=== PATIENT | female | born 1975 | race Hispanic/Latino ===

== ENCOUNTER 2017-03-20 09:42 | Emergency (ER) | payer OTHER ==
[~2017-03-20] VITALS: Ht 162.6 cm; Wt 82.0 kg
[2017-03-20] MEDS ORDERED: NS 1,000 ML IV SCH (09:50)
[2017-03-20] MEDS ORDERED: VENTAER IN (09:56)
[2017-03-20] MEDS ORDERED: TYLE325T5 PO (09:56)
[2017-03-20 10:17] LABS: BASO % 0.5 % (0.0-1.0); EOS # 0.2 10^3/uL (0.0-0.50); EOS % 3.5 % (0.0-3.0); IMMATURE GRANULOCYTE % 0.2 % (0-0); LYMPH # 1.7 10^3/uL (1.5-4.5); LYMPH % 29.2 % (24.0-44.0); MEAN CORPUSCULAR HEMOGLOBIN 26.3 pg (27.0-33.0); MEAN CORPUSCULAR HGB CONC 32.2 g/dl (32.0-36.5); MEAN CORPUSCULAR VOLUME 81.8 fl (80.0-96.0); MONO # 0.5 10^3/uL (0.0-0.8); MONO % 8.1 % (0.0-5.0); NEUTROPHILS # 3.4 10^3/uL (1.8-7.7); NEUTROPHILS % 58.5 % (36.0-66.0); PLATELET COUNT, AUTOMATED 238 10^3/uL (150-450); RED CELL DISTRIBUTION WIDTH 12.9 % (11.5-14.5); WHITE BLOOD COUNT 5.8 10^3/uL (4.0-10.0)
[2017-03-20 10:40] LABS: CONTROL LINE HCG INT CTR LINE PRESENT
[2017-03-20] MEDS ORDERED: DICYCLOMINE INJ 20MG/2ML (J0500) IM ONE (10:45)
[2017-03-20 10:50] LABS: ALBUMIN 3.5 GM/DL (3.2-5.2); ALBUMIN/GLOBULIN RATIO 0.83 (1.00-1.93); ALKALINE PHOSPHATASE 136 U/L (45-117); ALT/SGPT 60 U/L (12-78); ANION GAP 9 MEQ/L (8-16); AST/SGOT 35 U/L (15-37); BILIRUBIN,DIRECT < 0.1 MG/DL (0.0-0.2); BILIRUBIN,TOTAL 0.4 MG/DL (0.2-1.0); BLOOD UREA NITROGEN 13 MG/DL (7-18); CALCIUM LEVEL 9.1 MG/DL (8.5-10.1); CARBON DIOXIDE LEVEL 26 MEQ/L (21-32); CHLORIDE LEVEL 105 MEQ/L (98-107); CREATININE FOR GFR 0.69 MG/DL (0.55-1.02); GLOMERULAR FILTRATION RATE > 60.0 (>58); GLUCOSE, FASTING 90 MG/DL (70-105); POTASSIUM SERUM 4.3 MEQ/L (3.5-5.1); SODIUM LEVEL 140 MEQ/L (136-145); TOTAL PROTEIN 7.7 GM/DL (6.4-8.2)
[2017-03-20 12:16] VITALS: BP 129/92
--- NOTE | 2017-03-23 06:00 | ECGEPIP ---
Stationary ECG Study [facility] - ED Test Date: 2017-03-20 Pat Name: FARIDA VALENZUELA Department: Room: - Gender: F Micro Lab Analyst: nereida : 1975 Requested By: Katy Sol Order Number: [id number] Reading MD: Kirill Xiao Measurements Intervals [place] Rate: 59 P: 35 [place]: 145 QRS: -5 QRSD: 94 T: 8 QT: 401 QTc: 398 Interpretive Statements SINUS BRADYCARDIA POSSIBLE LEFT ATRIAL ENLARGEMENT POSSIBLE LEFT VENTRICULAR HYPERTROPHY NSTTW ABNORMALITIES NO PRIORS Electronically Signed On 03-23-2017 5:59:59 EDT by Kirill Xiao
== END 2017-03-20 12:26 | disposition home or self-care (01) ==
LOC: M ED 09:42
DX: K58.0 Irritable bowel syndrome with diarrhea (principal); Z98.890 Other specified postprocedural states
CPT/HCPCS: 80048; 80076; 83690; 84703; 85025; 93000; 96372; 99284; J0500

== ENCOUNTER → 2017-05-12 | Outpatient (REF) | payer OTHER, MEDICAID ==
[~2017-05-12] MED LIST: TYLE325T5 PO; VENTAER IN
[2017-05-12 19:36] LABS: BASO % 0.6 % (0.0-1.0); EOS # 0.2 10^3/uL (0.0-0.50); EOS % 3.2 % (0.0-3.0); IMMATURE GRANULOCYTE % 0.3 % (0-0); LYMPH # 1.7 10^3/uL (1.5-4.5); LYMPH % 24.7 % (24.0-44.0); MEAN CORPUSCULAR HEMOGLOBIN 26.4 pg (27.0-33.0); MEAN CORPUSCULAR HGB CONC 32.4 g/dl (32.0-36.5); MEAN CORPUSCULAR VOLUME 81.3 fl (80.0-96.0); MONO # 0.6 10^3/uL (0.0-0.8); NEUTROPHILS # 4.4 10^3/uL (1.8-7.7); NEUTROPHILS % 63.2 % (36.0-66.0); PLATELET COUNT, AUTOMATED 246 10^3/uL (150-450); RED CELL DISTRIBUTION WIDTH 12.7 % (11.5-14.5); WHITE BLOOD COUNT 6.9 10^3/uL (4.0-10.0)
== END ==
LOC: M LAB REF 17:37
PROVIDERS: ATTEND Family Medicine Addiction Medicine
DX: R59.0 Localized enlarged lymph nodes (principal)

== ENCOUNTER 2017-06-12 08:03 | Day surgery (SDC) | payer OTHER ==
[2017-06-12] MEDS: NS 1,000 ML IV (09:30)
[2017-06-12] MEDS ORDERED: LIDOCAINE 2% INJ 100 MG/5 ML SDV (FOR ANES.) As Ordered (12:00)
[2017-06-12] MEDS ORDERED: PROPOFOL 200 MG/20 ML VIAL As Ordered (12:00)
== END 2017-06-12 11:21 | disposition home or self-care (01) ==
LOC: M OPP 08:03
DX: R19.4 Change in bowel habit (principal); Z86.010 Personal history of colon polyps; K64.8 Other hemorrhoids; J45.909 Unspecified asthma, uncomplicated; G43.909 Migraine, unspecified, not intractable, without status migrainosus; G47.00 Insomnia, unspecified; G47.30 Sleep apnea, unspecified; M41.9 Scoliosis, unspecified; L30.9 Dermatitis, unspecified; K21.9 Gastro-esophageal reflux disease without esophagitis; Z79.899 Other long term (current) drug therapy; Z79.891 Long term (current) use of opiate analgesic; Z88.5 Allergy status to narcotic agent
CPT/HCPCS: 45378

== ENCOUNTER → 2017-07-14 | Outpatient (REF) | payer OTHER ==
[2017-07-14 22:51] LABS: INFLUENZA A AMPLIFICATION NEGATIVE (NEGATIVE); INFLUENZA B AMPLIFICATION NEGATIVE (NEGATIVE); RSV AMPLIFICATION NEGATIVE (NEGATIVE)
== END ==
LOC: M LAB REF 22:04
DX: J11.1 Influenza due to unidentified influenza virus with other respiratory manifestations (principal)